=== PATIENT | male | born 1975 | race Caucasian/White ===

== ENCOUNTER 2021-12-16 21:12 | Observation (INO) ==
[2021-12-17] MEDS ORDERED: ACETAMINOPHEN 325 MG TABLET PO PRN (00:22)
[2021-12-17] MEDS ORDERED: ONDANSETRON 4 MG/2 ML VIAL IV PRN (00:22)
[2021-12-17] MEDS ORDERED: HYDROcodone/APAP 5/325MG TABLET PO PRN (00:22)
[2021-12-17] MEDS ORDERED: ENOXAPARIN 100 MG/ML SYRINGE ONE (02:18)
[2021-12-17] MEDS: ENOXAPARIN 100 MG/ML SYRINGE SQ SCH ×3 (02:20→14:11)
--- NOTE | 2021-12-17 03:45 | Ultrasound Report ---
CLINICAL INFORMATION: Lateral calf pain COMPARISON: None. FINDINGS: Both paired posterior tibial calf veins are completely thrombosed. The remaining deep venous system bilaterally including the common femoral, superficial femoral, popliteal and paired trifurcation peroneal and anterior tibial calf veins are easily compressible and show normal venous blood flow on color and spectral Doppler. No evidence of thrombus IMPRESSION: Complete thrombosis of both posterior tibial calf veins. The remainder of the deep venous system, in both lower extremities, is widely patent. Interpreted and Authenticated by: Adalberto Delarosa 12/17/21
--- NOTE | 2021-12-17 05:13 | Emergency Department Note ---
Extremity Problem [facility] General Chief complaint: Extremity Problem,Nontraumatic Stated complaint: bilat lower extremity swelling/pain Time Seen by Provider: 12/16/21 22:25 Source: patient Mode of arrival: ambulatory History of Present Illness HPI Narrative: Narrative: This is a otherwise healthy 46-year-old male who for the past week has gradually developed bilateral calf pain and swelling started on the left side and then also on the right. No trauma no history of DVT or PE and no known family history. But went to urgent care and had a very high D-dimer and so was referred to the ED. He has no chest pain no shortness of breath or cardiorespiratory complaints of any kind to suggest PE. No recent travel, surgery, immobilization or other obvious inciting factor. No other complaints Related Data Home Medications Medication Instructions Recorded Confirmed No Known Home Meds 05/27/19 12/17/21 Allergies Allergy/AdvReac Type Severity Reaction Status Date / Time Sulfa (Sulfonamide Allergy Redness to Verified 12/16/21 21:13 Antibiotics) body Review of Systems ROS ROS Narrative: Narrative: At least 10 systems reviewed and otherwise acutely negative except as in the HPI PFSH Narrative Patient History Narrative: Narrative: Medical/Surgical/Family History All Active Problems Tachycardia (Acute) Calf cramp (Acute) Skin abrasion (Acute) Left shoulder pain (Acute) Social History Smoking Status: Never smoker Alcohol Intake Frequency: does not drink Substance Use: does not use Exam Narrative Narrative: Narrative: Constitutional: normally developed, no acute distress . Head: Normocephalic, atraumatic, Eyes: No Icterus, ENT: Moist mucus membranes, Neck: Supple, Cardiac: Normal heart sounds, palpable radial and dorsalis pedis pulses, edema 1+ bilateral lower extremity Pulmonary: Normal respiratory effort. Breath sounds clear, no wheeze, rhonchi, rales, Gastrointestinal: Abdomen soft, non-distended, non-tender, Musculoskeletal: No gross deformities, well perfused bilateral calf tenderness and swelling no cyanosis Skin: warm, dry Neuro: Alert Course Vital Signs Vital signs: Vital Signs Temperature 36.7 C 12/16/21 21:13 Pulse Rate 99 H 12/16/21 21:13 Respiratory Rate 18 12/16/21 21:13 Blood Pressure 151/87 12/16/21 21:13 Pulse Oximetry (%) 94 03/28/22 21:13 Temperature 36.9 C 12/17/21 04:02 Pulse Rate 84 12/17/21 04:02 Respiratory Rate 12 12/17/21 04:02 Blood Pressure 124/80 12/17/21 04:02 Pulse Oximetry (%) 96 12/17/21 04:02 MDM MDM Narrative Medical decision making narrative: Narrative: Patient with elevated D-dimer at urgent care clinically suspicious for DVT bilateral calf swelling and pain his vitals are stable no tachycardia no hypoxia no hypotension he has no chest pain no shortness of breath that would suggest PE. Did obtain bilateral lower extremity ultrasound which is indeed positive for bilateral posterior tibial vein DVTs CPK is not elevated, basic labs obtained at urgent care without market abnormality. Given the bilateral unprovoked nature do believe admission for anticoagulation initiation and further evaluation is warranted spoke with hospitalist who accepts admission and states that he will order the anticoagulation. Patient agreeable to plan Lab Data Labs: Lab Results 12/16/21 Range/Units 18:43 Total Creatine Kinase 139 (24-195) U/L ED POC Tests ED POC Tests: TOBY - SARS Antigen Negative Discharge Plan Patient/Caregiver Discharge Instructions Pt seen by [employer] PROCESSING TECHNICIAN/PA only: No Patient Disposition: Xfer As Inpt ([facility] Condition: Good Discharge Date/Time: 12/17/21 01:19
[2021-12-17] MEDS: 0.9 % SODIUM CHLORIDE 10 ML SYRINGE IV SCH ×3 (06:07→21:18)
[2021-12-17 06:52] LABS: Basophils # (Auto) 0.02 K/mcL (0.00-0.30); Basophils % (Auto) 0.4 % (0.0-2.0); Eosinophils # (Auto) 0.32 K/mcL (0.00-0.70); Eosinophils % (Auto) 6.1 % (0.0-7.0); Hematocrit 40.4 % (40.1-51.0); Hemoglobin 13.4 g/dL (13.7-17.5); Lymphocytes # (Auto) 1.46 K/mcL (1.50-4.80); Lymphocytes % (Auto) 27.7 % (15.5-49.0); Mean Cell Volume 90.4 fL (80.0-100.0); Mean Corpuscular HGB Conc 33.2 g/dL (31.0-36.0); Mean Platelet Volume 9.7 fL (7.4-10.4); Monocytes # (Auto) 0.63 K/mcL (0.10-0.90); Monocytes % (Auto) 11.9 % (1.0-12.0); Neutrophils % (Auto) 53.9 % (38.0-78.0); Platelet Count 250 K/mcL (140-440); RBC 4.47 M/mcL (4.63-6.08); Red Cell Distribution Width 11.7 % (11.5-14.5); WBC 5.3 K/mcL (4.5-11.0)
[2021-12-17 07:29] LABS: Blood Urea Nitrogen 10 mg/dL (6-20); Calcium 8.8 mg/dL (8.6-10.4); Carbon Dioxide 26 mmol/L (22-30); Chloride 103 mmol/L (96-108); Glomerular Filtration Rate 101; Glucose 99 mg/dL (70-105)
--- NOTE | 2021-12-17 08:46 | Internal Med History&Physical ---
HPI History of Present Illness Patient information: Note initiated : 12/17/21 at 8:39 am Service Date, if different from initiated Date: [] Patient: Gurwinder Jeffries a 46 y/o M admitted on 12/17/21 for bilat lower extremity swelling/pain. Chief Complaint: [] Chief complaint: Leg cramps History of present illness: Mr. Jeffries is a 46 year old M with no significant past medical history, presents with a few days history of bilateral leg cramps. He visited the emergency department upon his mother's request since his mother was concerned for lower extremity blood clots. He visited urgent care and had D-dimer above 10 and was referred to emergency room. Lower extremity ultrasound in the emergency room revealed bilateral posterior tibial vein DVTs. 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 Denies any long distance flights or car trips. Denies smoking. However he has some exposure to secondhand smoke. Denies any family history of blood clots. The only pertinent family history in his mother has Guillian Saavedra syndrome and retinal detachment. No clotting or bleeding history in his siblings or other family members Constitutional Constitutional: Absent anorexia, chills, fatigue, fever(s), headache(s), lethargy, malaise or night sweats Cardiovascular Cardiovascular: Absent chest pain, chest pain at rest, diaphoresis, irregular heart rhythm or lightheadedness Respiratory Respiratory: Absent hemoptysis, wheezing or excessive phlegm production Gastrointestinal Gastrointestinal: Absent diarrhea, hematemesis, melena, nausea or vomiting Musculoskeletal Musculoskeletal: Present muscle cramps (Both calf muscles) Neurological Neurological: Absent abnormal gait, abnormal speech, confusion, dizziness or headache(s) PFSH PFSH All Active Problems Tachycardia (Acute) Calf cramp (Acute) Skin abrasion (Acute) Left shoulder pain (Acute) Social History alcohol intake frequency: does not drink substance use type: does not use MEDS/ALLERGIES Home Medications and Allergies Home Medications Medication Instructions Recorded Confirmed Type No Known Home Meds 05/27/19 12/17/21 History Allergies Allergy/AdvReac Type Severity Reaction Status Date / Time Sulfa (Sulfonamide Allergy Redness to Verified 12/16/21 21:13 Antibiotics) body EXAM Constitutional Vitals: Temp Pulse Resp BP Pulse Ox 98.2 F 73 12 119/72 93 12/17/21 06:59 12/17/21 06:59 12/17/21 06:59 12/17/21 06:59 12/17/21 06:59 General appearance: average body habitus, cooperative and no acute distress Exam: Lower extremities visualized. No phlegmasia alba Elias's. They are warm and well-perfused. Mild erythema noted in both lower extremities. Head Head exam: Present atraumatic and normocephalic Eye Eye exam: Present normal appearance ENT ENT exam: Present mucous membranes moist Respiratory Respiratory exam: Present normal respiratory exam and CTAB; Absent accessory muscle use, rales, respiratory distress, stridor or wheezes Cardiovascular Cardiovascular exam: Present normal rate and rhythm and RRR; Absent bradycardia, diastolic murmur, gallop, irregular rhythm or rubs GI/Abdominal GI/Abdominal exam: Present normal bowel sounds and soft; Absent distended, guarding or rebound Expanded Lower Extremity Exam Hip exam: Present normal inspection; Absent swelling Back Exam Back exam: Present normal inspection; Absent CVA tenderness (L), CVA tenderness (R), paraspinal tenderness or vertebral tenderness Neurological Exam Neurological exam: Present alert and oriented X3; Absent abnormal gait or motor sensory deficit DATA Data Completed and Pending Labs: Labs from last 24 hours 12/17/21 12/17/21 12/16/21 06:08 06:08 18:43 WBC 5.3 RBC 4.47 L Hgb 13.4 L Hct 40.4 MCV 90.4 MCH 30.0 MCHC 33.2 RDW 11.7 Plt Count 250 MPV 9.7 Neut % (Auto) 53.9 Lymph % (Auto) 27.7 [place] % (Auto) 11.9 Eos % (Auto) 6.1 Baso % (Auto) 0.4 Lymph # (Auto) 1.46 L [place] # (Auto) 0.63 Eos # (Auto) 0.32 Baso # (Auto) 0.02 Absolute Neutrophils 2.85 Sodium 137 Potassium 4.3 Chloride 103 Carbon Dioxide 26 Anion Gap 8.0 BUN 10 Creatinine 0.9 GFR Calculation 101 Glucose 99 Calcium 8.8 Total Creatine Kinase 139 A/P Narrative A/P Narrative: 46-year-old male with no past medical history admitted for acute bilateral posterior tibial vein deep venous thrombosis. #DVT, acute, bilateral lower extremity This seems to be unprovoked, since he had no recent surgery, hospitalization, immobility. Family history does not reveal any thrombophilias We started him on 1 mg/kg Lovenox twice daily. This morning I discussed with him about various anticoagulation options, such as Xarelto/Eliquis, warfarin and Lovenox injections. I explained risks versus benefits between these 3 approaches. He does not want to do Lovenox injections. But he request some time to decide about DOAC versus warfarin therapy. He does not have a PCP. He will let us know of his decision by tomorrow and he can start him on oral therapy at that time. DVT prophylaxis-Lovenox 1 mg/kg as above Time Spent With Patient Time: Total time spent is greater than 50% in coordination of care (as documented) at patient's floor/unit and/or counseling patient: Total time spent with greater than 50% in coordination of care (as documented) at patient's floor/unit and/or counseling patient:: 35 - 50 minutes QUALITY VTE Deep Vein Thrombosis/Pulmonary Embolism Present on Admission: Yes
[2021-12-17] MEDS: DOCUSATE SODIUM 100 MG CAPSULE PO SCH ×2 (09:37→21:17)
--- NOTE | 2021-12-17 11:48 | XRay Report ---
CLINICAL INFORMATION: Bilateral lower extremity swelling COMPARISON: None. TECHNIQUE: PA and Lateral views FINDINGS: The heart size, mediastinum and pulmonary vessels are unremarkable. The lungs are clear. There are no effusions. Moderate chronic wedging mid thoracic vertebral bodies or fractures chronic Scheuermann's disease. IMPRESSION: No cardiopulmonary disease.. Interpreted and Authenticated by: Adalberto Delarosa 12/17/21
[2021-12-17 12:39] LABS: POC INR 1.4 (0.8-1.2); POC Pro Time 16.1 sec (11.9-14.5)
--- NOTE | 2021-12-17 14:09 | EKG ---
[facility] Test Date: 2021-12-17 Pat Name: Gurwinder Jeffries Department: [facility] Room: 106 Gender: Male Home Service Consultant: : 1975 Requested By: Sherry Hooker Order Number: [id number] Reading MD: Stefani Castañeda D.O. Measurements Intervals [place] Rate: 76 P: 47 SC: 149 QRS: 14 QRSD: 92 T: 9 QT: 382 QTc: 430 Interpretive Statements Sinus rhythm Nospecific T wave changes Electronically Signed On 12-17-2021 14:09:18 PDT by Stefani Castañeda D.O. /store/[email or web address]/[id number]
[2021-12-17] MEDS ORDERED: SENNOSIDES 1 TABLET PO SCH (21:00)
[2021-12-17] MEDS ORDERED: WARFARIN 5 MG TABLET PO ONE (22:00)
[2021-12-18] MEDS: ENOXAPARIN 100 MG/ML SYRINGE SQ SCH ×2 (02:03→13:57)
[2021-12-18 06:41] LABS: INR 1.1 (0.9-1.1); Partial Thromboplastin Time 42.9 sec (20.0-37.0); Prothrombin Time 14.6 sec (11.9-14.5)
[2021-12-18] MEDS: DOCUSATE SODIUM 100 MG CAPSULE PO SCH (07:17)
--- NOTE | 2021-12-18 10:09 | Discharge Summary ---
Discharge Provider Provider Patient information: Note initiated : 12/18/21 at 10:06 am Service Date, if different from initiated Date: [] Patient: Gurwinder Jeffries a 46 y/o M admitted on 12/17/21 for bilat lower extremity swelling/pain. Chief Complaint: [] Date of admission: 12/17/21 01:19 Discharge date: 12/18/21 Primary care physician: PCP No Admitting clinician: Sherry Hooker Attending physician on admission: Sherry Hooker Consults: 12/17/21 Consult to Physician [CONS] Stat Comment: Consulting Provider: Sherry Hooker Reason For Exam: Physician to Consult Attending physician on discharge: Sherry Hooker Discharging clinician: Sherry Hooker Discharge Meds Discharge Medications Home Medications enoxaparin 100 mg/mL subcutaneous syringe (Lovenox) 100 mg SQ Q12H 6 Days #12 ml 12/18/21 [Rx Last Taken Unknown] warfarin 5 mg tablet 5 mg PO QDAY #7 tab 12/18/21 [Rx Last Taken Unknown] COURSE Hospital Course Hospital course: Mr. Jeffries is a 46 year old M with no significant past medical history, presents with a few days history of bilateral leg cramps. He visited the emergency department upon his mother's request since his mother was concerned for lower extremity blood clots. He visited urgent care and had D-dimer above 10 and was referred to emergency room. Lower extremity ultrasound in the emergency room revealed bilateral posterior tibial vein DVTs. He works at a [employer], it is a physical job and he is on his feet most of the day. Denies any long distance flights or car trips. Denies smoking. However he has some exposure to secondhand smoke. Denies any family history of blood clots. The only pertinent family history in his mother has Guillian Saavedra syndrome and retinal detachment. No clotting or bleeding history in his siblings or other family members A/P Narrative: 46-year-old male with no past medical history admitted for acute bilateral posterior tibial vein deep venous thrombosis. #DVT, acute, bilateral lower extremity This seems to be unprovoked, since he had no recent surgery, hospitalization, immobility. Family history does not reveal any thrombophilias We started him on 1 mg/kg Lovenox twice daily. This morning I discussed with him about various anticoagulation options, such as Xarelto/Eliquis, warfarin and Lovenox injections. I explained risks versus benefits between these 3 approaches. He does not want to do Lovenox injections. He ultimately chose to be on warfarin therapy.. He does not have a PCP. So, for now, the plan is to have him on Lovenox and warfarin for the next week. Lovenox dose will be 1 mg/kg which is 100 mg twice a day for the next 5 days. Warfarin dose will be 5 mg daily. We will set up a PCP appointment within the next week so they can monitor the INR and redose warfarin as needed. Educated him on recognizing symptoms of pulmonary embolism and requested them to seek prompt emergent medical attention in case he has such symptoms. Interestingly, patient opted to be DO NOT RESUSCITATE. I discussed with him and explained the risks and benefits of CPR, intubation and shocks. Explained that since he is young, he has a higher probability of survival with resuscitation measures. Patient says that he has made up his mind, he does not want to take the risk of living a less than optimal life and wants to be DO NOT RESUSCITATE. Discharge diagnosis: Bilateral lower extremity deep venous thrombosis and posterior tibial veins Time Spent with Patient Time attestation: Total time spent providing and/or coordinating discharge services: Time spent: Greater than 30 minutes EXAM Constitutional Vitals: Temp Pulse Resp BP Pulse Ox 97.3 F 75 14 117/70 95 12/18/21 08:00 12/18/21 08:00 12/18/21 08:00 12/18/21 08:00 12/18/21 08:00 General appearance: average body habitus, cooperative and no acute distress Head Head exam: Present atraumatic and normocephalic Eye Eye exam: Present normal appearance ENT ENT exam: Present mucous membranes moist Respiratory Respiratory exam: Present normal respiratory exam and CTAB; Absent accessory muscle use, rales, respiratory distress, stridor or wheezes Cardiovascular Cardiovascular exam: Present normal rate and rhythm and RRR; Absent bradycardia, diastolic murmur, gallop, irregular rhythm or rubs GI/Abdominal GI/Abdominal exam: Present normal bowel sounds and soft; Absent distended, guarding or rebound Expanded Lower Extremity Exam Hip exam: Present normal inspection; Absent swelling Back Exam Back exam: Present normal inspection; Absent CVA tenderness (L), CVA tenderness (R), paraspinal tenderness or vertebral tenderness Neurological Exam Neurological exam: Present alert and oriented X3; Absent abnormal gait or motor sensory deficit Discharge Data Data Completed and Pending Labs on day of discharge: Labs from last 24 hours 12/18/21 12/18/21 12/18/21 05:39 05:39 05:39 ESR 27 H POC PT PT 14.6 H POC INR INR 1.1 APTT 42.9 H Beta-2-GPI IgG Ab Beta-2-GPI IgA Ab Beta-2-GPI IgM Ab Cardiolipin Ab Screen Pending Anti-Cardiolipin IgG Ab Pending Anti-Cardiolipin IgA Ab Pending Anti-Cardiolipin IgM Ab Pending Phospholip A2 Rec JULIETA 12/17/21 12/17/21 12/17/21 13:12 13:11 12:33 ESR POC PT 16.1 H PT POC INR 1.4 H INR APTT Beta-2-GPI IgG Ab Pending Beta-2-GPI IgA Ab Pending Beta-2-GPI IgM Ab Pending Cardiolipin Ab Screen Anti-Cardiolipin IgG Ab Anti-Cardiolipin IgA Ab Anti-Cardiolipin IgM Ab Phospholip A2 Rec JULIETA Pending Discharge Plan Patient/Caregiver Discharge Instructions Activity: increase activity as tolerated Diet: Regular Diet Prescriptions: New enoxaparin [Lovenox] 100 mg/mL Syringe 100 mg SQ Q12H 6 Days Qty: 12 0RF warfarin 5 mg tablet 5 mg PO QDAY Qty: 7 0RF Follow Up Plan Follow up with: No,PCP [Primary Care Provider] - (We will make an appointment with your new primary care doctor within 7 days. Please ensure you follow-up to get your INR checked. Your PCP will then change the dose of warfarin as needed) Patient Disposition: Home, Self-Care Prognosis: Good Overall status at discharge: patient is progressing back to baseline Discharge Orders: Discharge Order (Routine); Ordered 12/18/21 Ordered By: Sherry DYE VTE Deep Vein Thrombosis/Pulmonary Embolism Present on Admission: Yes
[2021-12-18] MEDS: 0.9 % SODIUM CHLORIDE 10 ML SYRINGE IV SCH ×2 (11:19→13:25)
[2021-12-18] MEDS ORDERED: WARFARIN 5 MG TABLET PO ONE (14:00)
[2021-12-22 08:32] LABS: Beta-2 GPI IGG ABS <2.0 U/mL; Beta-2 GPI IGM ABS <2.0 U/mL; Beta-2-GPI IGA ABS <2.0 U/mL
[2021-12-23 01:32] LABS: Anti-Cardio Antibody IgM <2.0 MPL-U/mL; Anti-Cardiolipin Antibody IgG <2.0 GPL-U/mL
== END 2021-12-18 14:15 | disposition home or self-care (01) ==
LOC: MEDSUR 21:12 → ED 21:12 → MEDSUR 12-17 01:19
PROVIDERS: ADMIT Internal Medicine Medical Oncology; ATTEND Internal Medicine Medical Oncology